=== PATIENT | female | born 1955 | race Caucasian/White ===

== ENCOUNTER 2018-01-14 13:33 | Emergency (ER) | payer OTHER ==
[~2018-01-14 13:33] MED LIST: ZOFRAN4 M2 PO
--- NOTE | 2018-01-14 16:19 | ED GENERAL ADULT ---
History of Present Illness General Chief Complaint: Eye Problems Stated Complaint: ?CELLULITIS TO R EYE Vital Signs & Intake/Output Vital Signs & Intake/Output Vital Signs Date Time Temp Pulse Resp B/P B/P Pulse O2 O2 Flow FiO2 Mean Ox Delivery Rate 01/14 1405 98.2 80 18 130/82 99 Room Air Room Air Allergies Coded Allergies: No Known Allergies (01/14/18) Reconcile Medications Ondansetron HCl (Zofran) 4 MG TABLET 1 TAB PO Q6-8P PRN nausea Triage Note: PT TO TRIAGE WITH BLURRY VISION SINCE THIS MORNING, PT HAS STYE TO RIGHT EYE LID, PT SAW A MD THIS MORNING AND STYE WAS DRAINED, BUT VISUAL ACUITY 20/70 IN AFFECTED EYE AND 20/25 IN UNAFFECTED, CURRENTLY 20/100 IN RIGHT AND 20/25 IN LEFT. 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 Surgical History Surgical History: none Psychosocial History What is your primary language Cuban Tobacco Use: Never used ETOH Use: denies use Illicit Drug Use: denies illicit drug use Progress Plan of Care: Orders Procedure Date/time Status CBC WITHOUT DIFFERENTIAL 01/14 1641 Complete BASIC METABOLIC PANEL 01/[address] ORBITS W IV CONTRAST 01/14 164 Active Laboratory Tests 01/14/18 1648: Anion Gap 10, Estimated GFR > 60, BUN/Creatinine Ratio 21.4, Glucose 138 H, Calcium 9.9, CBC w Diff NO MAN DIFF REQ, RBC 4.35, MCV 83.2, MCH 26.7 L, MCHC 32.1 L, RDW 20.1 H, MPV 7.4, Gran % 52.8, Lymphocytes % 33.9, Monocytes % 9.8 H, Eosinophils % 2.5, Basophils % 1.0, Absolute Granulocytes 3.6, Absolute Lymphocytes 2.3, Absolute Monocytes 0.7 H, Absolute Eosinophils 0.2, Absolute Basophils 0.1 Departure Departure Condition: Stable Referrals: Stephanie Tobin MD (PCP/Family) Departure Forms: Customer Survey General Discharge Information
[2018-01-14 17:09] LABS: ABSOLUTE BASOPHIL COUNT 0.1 /CUMM (0.0-0.2); ABSOLUTE EOSINOPHIL COUNT 0.2 /CUMM (0.0-0.7); ABSOLUTE GRANULOCYTE CT 3.6 /CUMM (1.4-6.5); ABSOLUTE LYMPH COUNT 2.3 /CUMM (1.2-3.4); ABSOLUTE MONOCYTE COUNT 0.7 /CUMM (0.10-0.60); EOSINOPHIL % 2.5 % (0-5); GRANULOCYTE % 52.8 % (42.2-75.2); HEMATOCRIT 36.2 % (37-47); MEAN CORPUSCULAR HGB 26.7 PG (27.0-31.0); MEAN CORPUSCULAR HGB CONC 32.1 G/DL (33.0-37.0); MEAN CORPUSCULAR VOLUME 83.2 FL (81.0-99.0); MEAN PLATELET VOLUME 7.4 FL (7.4-10.4); PLATELET COUNT 338 /CUMM (130-400); RBC DISTRIBUTION WIDTH 20.1 % (11.5-14.5); RED BLOOD CELL CT 4.35 /CUMM (4.20-5.40); WHITE BLOOD CELL COUNT 6.7 /CUMM (4.8-10.8)
--- NOTE | 2018-01-14 18:28 | CT SCAN REPORT ---
CT ORBIT WITH IV CONTRAST CLINICAL INFORMATION: Stye with pain radiating to the eye with eye movement. COMPARISON: None available. TECHNIQUE: A multidetector CT acquisition of the orbits is obtained following the administration of 95 mL of Optiray 320 intravenous contrast without complication. FINDINGS: Right-sided periorbital preseptal soft tissue swelling concentrated within the right upper palpebrae suggesting preseptal cellulitis. There is no evidence of post septal extension. There are no focal drainable fluid collections. Extraocular muscles are normal in size. There are no intraorbital mass lesions. The lacrimal glands are normal. Preserved fat within the superior and inferior orbital fissures and the pterygopalatine fossa bilaterally. No additional significant soft tissue findings. The partially imaged intracranial compartment is unremarkable. There are retention cysts versus polyps along the floor the right and left maxillary sinus. Mild mucosal thickening within the right sphenoid sinus. The remaining paranasal sinuses and the mastoid air cells are clear. The TMJs are unremarkable. There is rightward deviation of the nasal septum with a small rightward directed septal spur. IMPRESSION: Imaging findings suggest right-sided preseptal cellulitis concentrated within the right upper palpebrae. There is no evidence of post septal extension. No drainable fluid collections are identified.
[2018-01-14 18:31] VITALS: BP 116/76
[2018-01-14] MEDS ORDERED: CLEOCIN HCL300 M1 PO (18:46)
--- NOTE | 2018-01-14 18:52 | ED EYE COMPLAINT ---
History of Present Illness General Chief Complaint: Eye Problems Stated Complaint: ?CELLULITIS TO R EYE Source: patient Exam Limitations: no limitations Vital Signs & Intake/Output Vital Signs & Intake/Output Vital Signs Date Time Temp Pulse Resp B/P B/P Pulse O2 O2 Flow FiO2 Mean Ox Delivery Rate 01/14 1831 98.3 74 20 116/76 100 Room Air 01/14 1405 98.2 80 18 130/82 99 Room Air Room Air Allergies Coded Allergies: No Known Allergies (01/14/18) Reconcile Medications Clindamycin HCl (Cleocin HCl) 300 MG CAPSULE 1 CAP PO TID cellulitis Ondansetron HCl (Zofran) 4 MG TABLET 1 TAB PO Q6-8P PRN nausea Triage Note: PT TO TRIAGE WITH BLURRY VISION SINCE THIS MORNING, PT HAS STYE TO RIGHT EYE LID, PT SAW A MD THIS MORNING AND STYE WAS DRAINED, BUT VISUAL ACUITY 20/70 IN AFFECTED EYE AND 20/25 IN UNAFFECTED, CURRENTLY 20/100 IN RIGHT AND 20/25 IN LEFT. PT STATES EYE WAS ACHY YESTERDAY, DENIES FEVERS, NO CELLULUTIS NOTE, ONLY A FOCAL INFECTION TO EYE LID Triage Nurses Notes Reviewed? yes HPI: Patient is a 62-year-old otherwise healthy female who presents today with right- sided eye infection. She noted a dull pain about the right eye 48 hours ago and this morning awoke with erythema overlying the right upper lid. By lunch time, this had developed into a visible stye with a head. She does wear contact lenses only in the left eye, with reportedly normal vision in the right eye. She is usually 20/50 in the right eye but today was 20/70. She reports having developed some discomfort on extraocular range of motion as well. No fever or other constitutional symptoms. Past History Travel History Traveled to [place] past 21 day No Medical History Any Pertinent Medical History? 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 Yes Review of Systems Review of Systems Constitutional: Reports: no symptoms. Eyes: Reports: see HPI, blurred vision, inflammation, pain. Ear: Reports: no symptoms. Nose: Reports: no symptoms. Mouth: Reports: no symptoms. Throat: Reports: no symptoms. Respiratory: Reports: no symptoms. Cardiovascular: Reports: no symptoms. GI: Reports: no symptoms. Genitourinary: Reports: no symptoms. Musculoskeletal: Reports: no symptoms. Skin: Reports: no symptoms. Neurological/Psychological: Reports: no symptoms. Hematologic/Endocrine: Reports: no symptoms. Immunologic/Allergic: Reports: no symptoms. All Other Systems: Reviewed and Negative Physical Exam General Appearance: well developed/nourished, no apparent distress, alert, awake General Inspection: normal inspection General Inspection: PERIORBITAL ERYTHEMA Physical Exam Comments: HEENT: Focused examination of the right eye reveals a stye at the leading edge of the upper eyelid with a head, not actively draining area no conjunctivitis, proptosis, or other significant abnormalities. Subjective pain on extremes of extraocular days The sclera are noninjected, and there is no obvious discharge. Neck: No signs of trauma or asymmetry to the neck. Respiratory: The patient exhibits no signs of labored breathing. Cardiac: Non-tachycardic. GI: No gross abdominal distention. : Deferred Neuro: The patient is oriented to person, place, time, and situation, with no obvious focal motor deficits. Cranial nerves II through XII are intact, and gait is normal. Behavioral: Calm and cooperative Dermatologic: Dermatologic examination reveals no obvious rashes or exanthems. Progress Differential Diagnosis: pRESEPTAL CELLULITIS VERSUS ORBITAL CELLULITIS Plan of Care: Orders Procedure Date/time Status CBC WITHOUT DIFFERENTIAL 01/14 1641 Complete BASIC METABOLIC PANEL 01/14 1641 Complete Laboratory Tests 01/14/18 1648: Anion Gap 10, Estimated GFR > 60, BUN/Creatinine Ratio 21.4, Glucose 138 H, Calcium 9.9, CBC w Diff NO MAN DIFF REQ, RBC 4.35, MCV 83.2, MCH 26.7 L, MCHC 32.1 L, RDW 20.1 H, MPV 7.4, Gran % 52.8, Lymphocytes % 33.9, Monocytes % 9.8 H, Eosinophils % 2.5, Basophils % 1.0, Absolute Granulocytes 3.6, Absolute Lymphocytes 2.3, Absolute Monocytes 0.7 H, Absolute Eosinophils 0.2, Absolute Basophils 0.1 Comments: Patient presented with concern for orbital cellulitis, with obvious preseptal cellulitis. I obtained labs and a CT scan which thankfully documented no injury of orbital or retro-orbital involvement. Therefore, I placed the patient on clindamycin 300 mg 3 times daily, and discharged her with instructions to follow -up at her ophthalmology office. Departure Departure Time of Disposition: 1850 Disposition: HOME OR SELF CARE Condition: Stable Clinical Impression Primary Impression: Preseptal cellulitis of right eye Referrals: Crista SELLERS,Stephanie (PCP/Family) Additional Instructions: Your CT scan showed that the infection is localized to the front of the eye, thankfully not in or behind it. 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 Departure Forms: Customer Survey General Discharge Information Prescriptions: Current Visit Scripts Clindamycin HCl (Cleocin HCl) 1 CAP PO TID #42 CAP
== END 2018-01-14 18:58 ==
LOC: ERH 13:33
PROVIDERS: Physician Assistant
DX: H00.033 Abscess of eyelid right eye, unspecified eyelid (principal)
CPT/HCPCS: 96374; J1885

== ENCOUNTER 2018-02-19 11:14 | Inpatient (IN) | payer OTHER ==
[~2018-02-19] VITALS: Ht 162.6 cm; Wt 58.1 kg
[~2018-02-19 11:14] MED LIST changes: +CLEOCIN HCL300 M1 PO
[2018-02-19] MEDS ORDERED: ALPRAZOLAM0.5 M4 PO (11:21)
[2018-02-19] MEDS ORDERED: BENICAR HCT 401 EACH PO (11:21)
[2018-02-19] MEDS ORDERED: ALIGN4 M1 PO (11:22)
[2018-02-19] MEDS ORDERED: ZOLPIDEM TART12.5 M1 PO (11:22)
--- NOTE | 2018-02-19 11:58 | ED GI/GU/ABDOMINAL COMPLAINT ---
History of Present Illness General Chief Complaint: Nausea, Vomiting, Diarrhea Stated Complaint: DIARRHEA X 1 WEEK Source: patient Exam Limitations: no limitations Allergies Coded Allergies: No Known Allergies (01/14/18) Reconcile Medications Alprazolam 0.5 MG TABLET 1 TAB PO DAILY NEEDED ANXIETY (Reported) Bifidobacterium Infantis (Align) 4 MG (1 BILLION CELL) CAPSULE 1 TAB PO DAILY PROBIOTIC (Reported) Olmesartan/Hydrochlorothiazide (Benicar Hct 40-12.5 MG Tablet) 40 MG-12.5 MG TABLET 1 TAB PO DAILY HTN (Reported) Zolpidem Tartrate (Zolpidem Tartrate ER) 12.5 MG TAB.MPHASE 1 TAB PO QPMP PRN SLEEP (Reported) Triage Note: PER PT HX OF MICROSCOPIC COLITIS LAST BOUT 7-8 MONTHS AGO, REPORTS EXPLOSIVE DIARRHEA X 1 WEEK UNABLE TO EAT HAS NOT CONTACTED GI . FEELING DEHYDRATED Triage Nurses Notes Reviewed? yes ? N Is pt currently ? No Onset: Abrupt Duration: week(s): (1), intermittent Timing: recent history Quality/Severity: moderate, severe HPI: 62-year-old female comes into the emergency room with complaints of intermittent loose stools is been going on for the past week. She reports that since she eats or drinks anything it goes directly through her in comes out like water. She has some cramping abdominal pain with bowel movements but denies any abdominal pain otherwise. Denies any fever or vomiting. Some associated nausea at times and has had a significant decrease in appetite. She tried some Imodium which helped for about a day and then her symptoms returned. History of C. difficile colitis. Denies any recent antibiotic use or recent hospitalizations. (Philip Piper) Vital Signs & Intake/Output Vital Signs & Intake/Output Vital Signs Date Time Temp Pulse Resp B/P B/P Pulse O2 O2 Flow FiO2 Mean Ox Delivery Rate 02/19 1404 97.7 107 16 112/59 98 Room Air 02/19 1120 99.0 83 20 99/60 97 Room Air (Jeimy SELLERS,Elian Serrano) Past History Travel History Traveled to [place] past 21 day No Medical History Any Pertinent Medical History? 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 No (Philip Piper) Review of Systems Review of Systems Constitutional: Reports: see HPI. EENTM: Reports: no symptoms. Respiratory: Reports: no symptoms. Cardiovascular: Reports: no symptoms. GI: Reports: see HPI. Genitourinary: Reports: no symptoms. Musculoskeletal: Reports: no symptoms. Skin: Reports: no symptoms. Neurological/Psychological: Reports: no symptoms. Hematologic/Endocrine: Reports: no symptoms. Immunologic/Allergic: Reports: no symptoms. All Other Systems: Reviewed and Negative (Philip Piper) Physical Exam Physical Exam General Appearance: well developed/nourished, alert, awake, mild distress Head: atraumatic Eyes: Bilateral: normal appearance. Ears, Nose, Throat, Mouth: hearing grossly normal Neck: normal inspection Respiratory: no respiratory distress Cardiovascular: regular rate/rhythm Gastrointestinal: normal bowel sounds, soft, non-tender Back: normal inspection Extremities: normal range of motion Neurologic/Psych: awake, alert, oriented x 3 Skin: intact, normal color Core Measures ACS in differential dx? No Sepsis Present: Yes Sepsis Focused Exam Completed? Yes (Philip Piper) ED Sepsis Exam Date of Focused Sepsis Exam: 02/19/18 Time of Focused Sepsis Exam: 1300 Sepsis Cardiac Exam: Tachycardia Sepsis Resp Exam: CTA Sepsis Cap Refill Exam: <2 Sec Sepsis Peripheral Pulse Exam: Normal Sepsis Peripheral Pulse Location: Radial Sepsis Skin Color Exam: Normal for Ethnicity Skin Temp/Moisture Exam: Warm/Dry (Philip Piper) Progress Differential Diagnosis: appendicitis, biliary colic, cholecystitis, diverticulitis, gastritis, hepatitis, ischemic bowel, pancreatitis, PUD/GERD, UTI/pyelo Diagnostic Imaging: Viewed by Me: CT Scan. Discussed w/RAD: CT Scan. Radiology Impression: PATIENT: VENKATA BEARDEN PRESENT AGE: 62 PATIENT ACCOUNT NO: [id number] : 53 LOCATION: [facility] ORDERING PHYSICIAN: Philip GOMEZ SERVICE DATE: 02/19/18-2908 EXAM TYPE: CAT - CT ABD & PELVIS W IV CONTRAST EXAMINATION: CT ABDOMEN AND PELVIS WITH CONTRAST CLINICAL INFORMATION: Abdominal pain. Diarrhea. COMPARISON: None TECHNIQUE: Multidetector volumetric imaging was performed of the abdomen and pelvis following IV administration of 195 mL of Optiray 320 intravenous contrast. Sagittal and coronal reformatted images were obtained on the technologist's workstation. DLP: 256 mGy-cm FINDINGS: LUNG BASES: Linear bands of platelike atelectasis are present in the lower lobes bilaterally. 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 LIVER, GALLBLADDER, AND BILIARY TREE: Small foci of hypoattenuation around the falciform ligament within hepatic segments 4 and 3 are likely due to aberrant venous inflow. There is a 0.4 standard focus of hypoattenuation in hepatic segment 8 laterally which is too small to characterize and of doubtful clinical significance. Liver is otherwise normal in size and contour with normal attenuation. No ductal dilatation. The gallbladder is unremarkable with no evidence of radiopaque gallstones, gallbladder wall thickening, or obvious pericholecystic inflammatory changes. PANCREAS: Unremarkable. SPLEEN: Unremarkable. ADRENAL GLANDS: Unremarkable. KIDNEYS AND URETERS: There is a small 0.6 cm focus of hypoattenuation in the cortex of the upper pole the left kidney, too small to characterize. A similar small 4 mm focus of high attenuation is present in the lower pole. No suspicious renal lesions are identified. Kidneys are normal in size with symmetric enhancement and cortical thickness. No hydronephrosis, nephrolithiasis, hydroureter, or ureterolithiasis. BLADDER: Unremarkable. GASTROINTESTINAL TRACT: Stomach, small bowel, and colon are normal in caliber. There is mild diffuse mucosal enhancement within the colon with mild associated bowel wall thickening, suggesting of a mild colitis. There is moderate colonic diverticulosis in the descending and sigmoid colon without diverticulitis. No intraperitoneal free fluid or free air. A small 1.5 cm diverticulum is present at the second portion of the duodenum. Small bowel is normal in caliber. Stomach is unremarkable. ABDOMINAL WALL: No significant hernia is appreciated. LYMPH NODES: Numerous mesenteric lymph nodes measuring up to 0.9 cm in short axis, potentially reactive in nature given the generalized bowel wall thickening and mucosal hyperenhancement in the colon. No significant retroperitoneal adenopathy. A left external iliac node measures 0.8 cm in short axis. VASCULAR: Mild calcific atherosclerosis is present in the abdominal aorta. No aneurysmal dilatation. PELVIC VISCERA: Uterus appears surgically absent ovaries are not seen. At the posterior margin of the uterine cuff, there is a 3 x 2 x 1.4 cm focus of homogeneously dense material (160 Hounsfield units) which is of uncertain etiology, potentially related to prior surgery. OSSEOUS STRUCTURES: Multilevel degenerative disc disease present in the lumbar spine with retrolisthesis of L2 on L3 and anterolisthesis of L4 on L5 and L5 on S1. Marked synovitis present in the lower lumbar spine. No fractures. IMPRESSION: 1. Mild diffuse colonic wall thickening and mucosal hyperenhancement with mild mesenteric adenopathy. Findings suggest a pancolitis, most likely infectious or inflammatory ( inflammatory bowel disease) in nature. 2. Colonic diverticulosis and a small duodenal diverticulum. No evidence of diverticulitis. 3. A homogeneously dense 3 cm structure at the posterior margin of the vaginal cuff is of uncertain etiology and may be related to prior surgery 4. A few small subcentimeter foci of hypoattenuation in the liver and kidneys which are to small to characterize, statistically favored to represent small cysts DICTATED BY: Amanuel Desir MD DATE/TIME DICTATED:02/19/181454 CAUSTIC STRENGTH INSPECTOR:JONATHON DATE/TIME TRANSCRIBED:02/19/181454 CONFIDENTIAL, DO NOT COPY WITHOUT APPROPRIATE AUTHORIZATION. <Electronically signed in Other Vendor System> SIGNED BY: Amanuel Desir MD 02/19/18 1518 Initial ED EKG: none (Philip Piper) Plan of Care: Orders Procedure Date/time Status Heart Healthy Diet 02/20 B Active Patient Data 02/19 1629 Active Misc Message 02/19 1607 Active ED Holding Orders 02/19 1607 Active Vital Signs 02/19 1607 Active Code Status 02/19 1607 Active Admit to inpatient 02/19 1605 Active LACTIC ACID 02/19 1458 Complete Add-on Test (ER Only) 02/19 1312 Active BLOOD CULTURE 02/19 1308 Active MAGNESIUM 02/19 1216 Complete CULTURE,STOOL 02/19 1158 Active OVA AND PARASITE ANTIGENS 02/19 1158 Active C.DIFFICILE 02/19 1158 Active LIPASE 02/19 1158 Complete LACTIC ACID 02/19 1158 Complete COMPREHENSIVE METABOLIC PANEL 02/19 1158 Complete CBC WITHOUT DIFFERENTIAL 02/19 1158 Complete Current Medications Sig/Kymberly Start time Last Medication Dose Stop Time Status Admin Sodium Chloride 1,000 ML ONCE ONE 02/19 1630 AC (Normal Saline 0.9%) 02/19 2309 Laboratory Tests 02/19/18 1530: Lactic Acid 1.2 02/19/18 1216: Anion Gap 14, Estimated GFR 45 L, BUN/Creatinine Ratio 18.3, Glucose 131 H, Lactic Acid 3.8 H, Calcium 8.9, Magnesium 1.6, Total Bilirubin 0.1 L, AST 33, ALT 27, Alkaline Phosphatase 109, Total Protein 5.6 L, Albumin 2.9 L, Globulin 2.7, Albumin/Globulin Ratio 1.1, Lipase 107 02/19/18 1158: CBC w Diff MAN DIFF ORDERED, RBC 3.90 L, MCV 84.3, MCH 28.1, MCHC 33.3, RDW 14.8 H, MPV 6.9 L, Gran % 86.7 H, Lymphocytes % 3.7 L, Monocytes % 9.3, Eosinophils % 0.3, Basophils % 0, Absolute Granulocytes 25.6 H, Segmented Neutrophils 59, Band Neutrophils 26 H, Absolute Lymphocytes 1.1 L, Lymphocytes 9 L, Monocytes 6, Absolute Monocytes 2.8 H, Absolute Eosinophils 0.1, Absolute Basophils 0, Platelet Estimate VERIFIED BY SMEAR, Normocytic RBCs VERIFIED, Normochromic RBCs VERIFIED Microbiology 02/19 1527 BLOOD: Blood Culture - RECD 02/19 1409 BLOOD: Blood Culture - RECD 02/19 1158 STOOL: Cryptosporidium Antigen - ORD 02/19 1158 STOOL: Giardia Antigen (BONITA) - ORD 02/19 1158 STOOL: Clostridium difficile Toxin A & B - ORD 02/19 1158 STOOL: Stool Culture - ORD (Jeimy SELLERS,Elian Serrano) Departure Departure Disposition: STILL A PATIENT Condition: Stable Clinical Impression Primary Impression: C. difficile colitis Secondary Impressions: Sepsis Referrals: Stephanie Tobin MD (PCP/Family) Departure Forms: Customer Survey General Discharge Information Admission Note Spoke With: Candida Martinez MD Documentation of Exam: Documentation of any treatments & extenuating circumstances including Concerns Regarding Discharge (functional status, medication knowledge or non-compliance, living conditions, etc.) that warrant an admission rather than observation: Patient will require IV antibiotics. Repeat labs. IV fluids. Infectious disease consultation. GI consultation. Isolation precautions. Patient had recent antibiotics of clindamycin within the last 6 weeks. (Nic GOMEZ,Philip) PA/COIN MACHINE MECHANIC Co-Sign Statement Statement: ED Attending supervision documentation- [X] I saw and evaluated the patient. I have also reviewed all the pertinent lab results and diagnostic results. I agree with the findings and the plan of care as documented in the PA's/COIN MACHINE MECHANIC's documentation. Patient presents for evaluation of severe diarrhea for one week. Physical examination reveals mild abdominal distention and hyperactive bowel sounds. [] I have reviewed the ED Record and agree with the PA's/COIN MACHINE MECHANIC's documentation. [] Additions or exceptions (if any) to the PAs/COIN MACHINE MECHANIC's note and plan are summarized below: [] (Jeimy SELLERS,Elian Serrano)
[2018-02-19 12:31] LABS: ABSOLUTE BASOPHIL COUNT 0 /CUMM (0.0-0.2); ABSOLUTE EOSINOPHIL COUNT 0.1 /CUMM (0.0-0.7); ABSOLUTE GRANULOCYTE CT 25.6 /CUMM (1.4-6.5); ABSOLUTE LYMPH COUNT 1.1 /CUMM (1.2-3.4); ABSOLUTE MONOCYTE COUNT 2.8 /CUMM (0.10-0.60); BASOPHIL % 0 % (0.0-2.0); EOSINOPHIL % 0.3 % (0-5); HEMATOCRIT 32.9 % (37-47); MEAN CORPUSCULAR HGB 28.1 PG (27.0-31.0); MEAN CORPUSCULAR HGB CONC 33.3 G/DL (33.0-37.0); MEAN CORPUSCULAR VOLUME 84.3 FL (81.0-99.0); MEAN PLATELET VOLUME 6.9 FL (7.4-10.4); PLATELET COUNT 434 /CUMM (130-400); RBC DISTRIBUTION WIDTH 14.8 % (11.5-14.5); WHITE BLOOD CELL COUNT 29.5 /CUMM (4.8-10.8)
[2018-02-19 12:38] LABS: GRANULOCYTE % 86.7 % (42.2-75.2)
--- NOTE | 2018-02-19 15:18 | CT SCAN REPORT ---
EXAMINATION: CT ABDOMEN AND PELVIS WITH CONTRAST CLINICAL INFORMATION: Abdominal pain. Diarrhea. COMPARISON: None TECHNIQUE: Multidetector volumetric imaging was performed of the abdomen and pelvis following IV administration of 195 mL of Optiray 320 intravenous contrast. Sagittal and coronal reformatted images were obtained on the technologist's workstation. DLP: 256 mGy-cm FINDINGS: LUNG BASES: Linear bands of platelike atelectasis are present in the lower lobes bilaterally. 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 LIVER, GALLBLADDER, AND BILIARY TREE: Small foci of hypoattenuation around the falciform ligament within hepatic segments 4 and 3 are likely due to aberrant venous inflow. There is a 0.4 standard focus of hypoattenuation in hepatic segment 8 laterally which is too small to characterize and of doubtful clinical significance. Liver is otherwise normal in size and contour with normal attenuation. No ductal dilatation. The gallbladder is unremarkable with no evidence of radiopaque gallstones, gallbladder wall thickening, or obvious pericholecystic inflammatory changes. PANCREAS: Unremarkable. SPLEEN: Unremarkable. ADRENAL GLANDS: Unremarkable. KIDNEYS AND URETERS: There is a small 0.6 cm focus of hypoattenuation in the cortex of the upper pole the left kidney, too small to characterize. A similar small 4 mm focus of high attenuation is present in the lower pole. No suspicious renal lesions are identified. Kidneys are normal in size with symmetric enhancement and cortical thickness. No hydronephrosis, nephrolithiasis, hydroureter, or ureterolithiasis. BLADDER: Unremarkable. GASTROINTESTINAL TRACT: Stomach, small bowel, and colon are normal in caliber. There is mild diffuse mucosal enhancement within the colon with mild associated bowel wall thickening, suggesting of a mild colitis. There is moderate colonic diverticulosis in the descending and sigmoid colon without diverticulitis. No intraperitoneal free fluid or free air. A small 1.5 cm diverticulum is present at the second portion of the duodenum. Small bowel is normal in caliber. Stomach is unremarkable. ABDOMINAL WALL: No significant hernia is appreciated. LYMPH NODES: Numerous mesenteric lymph nodes measuring up to 0.9 cm in short axis, potentially reactive in nature given the generalized bowel wall thickening and mucosal hyperenhancement in the colon. No significant retroperitoneal adenopathy. A left external iliac node measures 0.8 cm in short axis. VASCULAR: Mild calcific atherosclerosis is present in the abdominal aorta. No aneurysmal dilatation. PELVIC VISCERA: Uterus appears surgically absent ovaries are not seen. At the posterior margin of the uterine cuff, there is a 3 x 2 x 1.4 cm focus of homogeneously dense material (160 Hounsfield units) which is of uncertain etiology, potentially related to prior surgery. OSSEOUS STRUCTURES: Multilevel degenerative disc disease present in the lumbar spine with retrolisthesis of L2 on L3 and anterolisthesis of L4 on L5 and L5 on S1. Marked synovitis present in the lower lumbar spine. No fractures. IMPRESSION: 1. Mild diffuse colonic wall thickening and mucosal hyperenhancement with mild mesenteric adenopathy. Findings suggest a pancolitis, most likely infectious or inflammatory (inflammatory bowel disease) in nature. 2. Colonic diverticulosis and a small duodenal diverticulum. No evidence of diverticulitis. 3. A homogeneously dense 3 cm structure at the posterior margin of the vaginal cuff is of uncertain etiology and may be related to prior surgery 4. A few small subcentimeter foci of hypoattenuation in the liver and kidneys which are to small to characterize, statistically favored to represent small cysts
--- NOTE | 2018-02-19 16:53 | History & Physical ---
Emmanuel Robison MD 02/19/18 9966: General Information and HPI MD Statement: I have seen and personally examined VENKATA BEARDEN and documented this H&P. The patient is a 62 year old F who presented with a patient stated chief complaint of diarrhea. Source of Information: patient, old records Exam Limitations: no limitations History of Present Illness: 62 year old female with past medical history significant for uterine cancer s/p hysterectomy, appendectomy, remote history of C. 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 The patient developed non bloody watery diarrhea that has been worsening over the past week. She has associated lower abdominal crampy pain preceding the BMs and relieved by defecation. She hasn't had any fevers but does state she had chills and has been taking Excedrin for headache. She reports poor appetite, anorexia, and fatigue. She has had to call out of work and was exhausted and bed bound over the weekend except for trips to the bathroom. She estimates 7-10 watery loose brown BMs on the days preceding admission. She reports taking several tablets over imodium over the weekend for symptomatic relief of her diarrrhea and she stopped taking her antihypertensive for the last few days because of poor PO intake, diarrhea, and dehydration, but she did take it this morning. She does report feeling presyncopal this morning prior to arriving in the ED. She had a C. 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 She also reportedly had a diagnosis of microscopic colitis on routine screening colonoscopy with a polyp biopsy. She denies any exposure to raw or uncooked foods or recent travel. 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 She also took two weeks of clindamycin for preseptal cellulitis/stye. She denies any significant abdominal pain, nausea, vomiting, dysuria, chest pain or dyspnea. She does report some palpitations, she associated with dehydration and dry mouth. In the ED, she had leukocytosis with bandemia, tachycardia, lactic acidemia, and an abdominal CT demonstrative of pancolitis. She treated with crystalloid, oral vancomycin, and intravenous metronidazole and admitted for severe sepsis and probable C. diff colitis. Allergies/Medications Allergies: Coded Allergies: No Known Allergies (01/14/18) Compliance With Home Meds: GOOD Past History Travel History Traveled to [place] past 21 day No Medical History Neurological: NONE EENT: NONE Cardiovascular: hypertension Respiratory: asthma Gastrointestinal: NONE Hepatic: NONE Renal: NONE Musculoskeletal: NONE Psychiatric: NONE Endocrine: NONE Blood Disorders: NONE Cancer(s): UTERINE CANCER [employer] WORKER/Reproductive: NONE Surgical History Surgical History: none Past Family/Social History Family History Relations & Conditions if any MOTHER FH: esophageal cancer FATHER FH: cerebral aneurysm Psychosocial History Smoking Status: Former Smoker ETOH Use: denies use Illicit Drug Use: denies illicit drug use Functional Ability ADLs Independent: dressing, eating, toileting, bathing. Ambulation: independent IADLs Independent: shopping, housework, finances, food prep, telephone, transportation , medication admin. Employment History Employment Employed Review of Systems Review of Systems Constitutional: Reports: chills, malaise. Denies: fever. EENTM: Reports: no symptoms. Cardiovascular: Reports: palpitations. Denies: chest pain. Respiratory: Denies: cough, short of breath. GI: Reports: abdominal pain, diarrhea. Denies: melena, nausea, bloody stool, vomiting. Genitourinary: Denies: dysuria, frequency. Musculoskeletal: Reports: no symptoms. Skin: Reports: no symptoms. Neurological/Psychological: Reports: no symptoms. Hematologic/Endocrine: Reports: no symptoms. Immunologic/Allergic: Reports: no symptoms. All Other Systems: Reviewed and Negative Exam & Diagnostic Data Last 24 Hrs of Vital Signs/I&O Vital Signs Date Time Temp Pulse Resp B/P B/P Pulse O2 O2 Flow FiO2 Mean Ox Delivery Rate 02/19 1855 99.4 02/19 1404 97.7 107 16 112/59 98 Room Air 02/19 1120 99.0 83 20 99/60 97 Room Air Intake & Output 02/19 1600 02/19 0800 02/19 0000 Intake Total 4000 Output Total Balance 4000 Intake, IV 4000 Patient 58.513 kg Weight Weight Estimated Measurement Method Physical Exam General Appearance Alert, Oriented X3, Cooperative, No Acute Distress Skin No Rashes Skin Temp/Moisture Exam: Warm/Dry Sepsis Skin Exam (color): Normal for Ethnicity Cardiovascular Regular Rate, Normal S1, Normal S2, No Murmurs Lungs Clear to Auscultation, Normal Air Movement Abdomen Normal Bowel Sounds, Soft, No Hepatospenomegaly, No Masses, mild RUQ tenderness on palpation, no rebound or guarding Extremities No Clubbing, No Cyanosis, No Edema, Normal Pulses Sepsis Peripheral Pulse Location: Radial Sepsis Peripheral Pulse Exam: Normal Sepsis Cap Refill Exam: <2 Sec Last 24 Hrs of Labs/Carlos: Laboratory Tests 02/19/18 1530: Lactic Acid 1.2 02/19/18 1216: Anion Gap 14, Estimated GFR 45 L, BUN/Creatinine Ratio 18.3, Glucose 131 H, Lactic Acid 3.8 H, Calcium 8.9, Magnesium 1.6, Total Bilirubin 0.1 L, AST 33, ALT 27, Alkaline Phosphatase 109, Total Protein 5.6 L, Albumin 2.9 L, Globulin 2.7, Albumin/Globulin Ratio 1.1, Lipase 107 02/19/18 1158: CBC w Diff MAN DIFF ORDERED, RBC 3.90 L, MCV 84.3, MCH 28.1, MCHC 33.3, RDW 14.8 H, MPV 6.9 L, Gran % 86.7 H, Lymphocytes % 3.7 L, Monocytes % 9.3, Eosinophils % 0.3, Basophils % 0, Absolute Granulocytes 25.6 H, Segmented Neutrophils 59, Band Neutrophils 26 H, Absolute Lymphocytes 1.1 L, Lymphocytes 9 L, Monocytes 6, Absolute Monocytes 2.8 H, Absolute Eosinophils 0.1, Absolute Basophils 0, Platelet Estimate VERIFIED BY SMEAR, Normocytic RBCs VERIFIED, Normochromic RBCs VERIFIED Microbiology 02/20 1656 STOOL: Cryptosporidium Antigen - COLB 02/20 1656 STOOL: Giardia Antigen (CARLOS) - COLB 02/19 165 STOOL: Clostridium difficile Toxin A & B - RECD 02/19 165 STOOL: Stool Culture - RECD 02/19 1527 BLOOD: Blood Culture - RECD 02/19 1409 BLOOD: Blood Culture - RECD Diagnostic Data Other Results EXAM TYPE: CAT - CT ABD & PELVIS W IV CONTRAST EXAMINATION: CT ABDOMEN AND PELVIS WITH CONTRAST CLINICAL INFORMATION: Abdominal pain. Diarrhea. COMPARISON: None TECHNIQUE: Multidetector volumetric imaging was performed of the abdomen and pelvis following IV administration of 195 mL of Optiray 320 intravenous contrast. Sagittal and coronal reformatted images were obtained on the technologist's workstation. DLP: 256 mGy-cm FINDINGS: LUNG BASES: Linear bands of platelike atelectasis are present in the lower lobes bilaterally. 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 LIVER, GALLBLADDER, AND BILIARY TREE: Small foci of hypoattenuation around the falciform ligament within hepatic segments 4 and 3 are likely due to aberrant venous inflow. There is a 0.4 standard focus of hypoattenuation in hepatic segment 8 laterally which is too small to characterize and of doubtful clinical significance. Liver is otherwise normal in size and contour with normal attenuation. No ductal dilatation. The gallbladder is unremarkable with no evidence of radiopaque gallstones, gallbladder wall thickening, or obvious pericholecystic inflammatory changes. PANCREAS: Unremarkable. SPLEEN: Unremarkable. ADRENAL GLANDS: Unremarkable. KIDNEYS AND URETERS: There is a small 0.6 cm focus of hypoattenuation in the cortex of the upper pole the left kidney, too small to characterize. A similar small 4 mm focus of high attenuation is present in the lower pole. No suspicious renal lesions are identified. Kidneys are normal in size with symmetric enhancement and cortical thickness. No hydronephrosis, nephrolithiasis, hydroureter, or ureterolithiasis. BLADDER: Unremarkable. GASTROINTESTINAL TRACT: Stomach, small bowel, and colon are normal in caliber. There is mild diffuse mucosal enhancement within the colon with mild associated bowel wall thickening, suggesting of a mild colitis. There is moderate colonic diverticulosis in the descending and sigmoid colon without diverticulitis. No intraperitoneal free fluid or free air. A small 1.5 cm diverticulum is present at the second portion of the duodenum. Small bowel is normal in caliber. Stomach is unremarkable. ABDOMINAL WALL: No significant hernia is appreciated. LYMPH NODES: Numerous mesenteric lymph nodes measuring up to 0.9 cm in short axis, potentially reactive in nature given the generalized bowel wall thickening and mucosal hyperenhancement in the colon. No significant retroperitoneal adenopathy. A left external iliac node measures 0.8 cm in short axis. VASCULAR: Mild calcific atherosclerosis is present in the abdominal aorta. No aneurysmal dilatation. PELVIC VISCERA: Uterus appears surgically absent ovaries are not seen. At the posterior margin of the uterine cuff, there is a 3 x 2 x 1.4 cm focus of homogeneously dense material (160 Hounsfield units) which is of uncertain etiology, potentially related to prior surgery. OSSEOUS STRUCTURES: Multilevel degenerative disc disease present in the lumbar spine with retrolisthesis of L2 on L3 and anterolisthesis of L4 on L5 and L5 on S1. Marked synovitis present in the lower lumbar spine. No fractures. IMPRESSION: 1. Mild diffuse colonic wall thickening and mucosal hyperenhancement with mild mesenteric adenopathy. Findings suggest a pancolitis, most likely infectious or inflammatory (inflammatory bowel disease) in nature. 2. Colonic diverticulosis and a small duodenal diverticulum. No evidence of diverticulitis. 3. A homogeneously dense 3 cm structure at the posterior margin of the vaginal cuff is of uncertain etiology and may be related to prior surgery 4. A few small subcentimeter foci of hypoattenuation in the liver and kidneys which are to small to characterize, statistically favored to represent small cysts Assessment/Plan Assessment: 62 year old female with past medical history of C diff 10 years ago, microscopic colitis presents with frequent worsening diarrhea, chills, lethargy, crampy abdominal pain, and anorexia for the past week after recently completing a two week course of clindamycin and CT findings consistent with pancolitis. Severe sepsis secondary to probable severe C. difficile infection: Also could be ischemic, other infectious etiology, microscopic colitis, or IBD Leukocytosis, tachycardia, PEARL, and lactic acidemia no ileus or toxic megacolon WBC 29,500, with 26 bands, lactic acid 3.8, improved to 1.2 with fluid resuscitation Monitor for fever, follow up blood cultures Continue clindamycin 125mg po q6h Infectious disease consultation, appreciate recommendations Received 30cc/kg crystalloid resuscitation and antibiotics in the ED Check stool studies, culture, ova and parasites Check C. diff, special contact precautions Guiaic stool Repeat CBC and labs in the morning PEARL with mildly elevated creatinine: Creatinine 1.2 on presentation Baseline 0.7-0.8 Likely prerenal azotemia from dehydration, fluid losses from diarrhea, and infection Continue intravascular volume resuscitation Hold diuretics/nephrotoxins Check repeat renal function in the AM Hypokalemia: 3.2 on arrival, secondary to prolonged diarrhea Received 10meq potassium IV, add 40meq kdur Repeat basic electrolytes with morning labs HTN: Hold ARB/thiazide combination now in the setting of sepsis and PEARL Last taken the morning of admission, patient reports not taking over the wknd Will plan to restart tomorrow if clinical condition improves and/or blood pressure increases Regular diet DVT ppx-heparin subcutaneous Full code As Ranked By This Provider Problem List: 1. C. difficile colitis 2. Sepsis Core Measures/Misc (05/27) Acute Coronary Syndrome ACS Diagnosis: No Congestive Heart Failure Congestive Heart Failure Diagnosis No Cerebrovascular Accident CVA/TIA Diagnosis: No VTE (View Protocol) VTE Risk Factors Age>40 No Mechanical VTE Prophylaxis d/t N/A MechProphylax Ordered No VTE Pharm Prophylaxis d/t NA PharmProphylax ordered Sepsis (View protocol) Sepsis Present: Yes If YES complete Sepsis Event Note If YES complete Sepsis Event Note Angel Walton MD 02/19/18 1713: General Information and HPI Allergies/Medications Home Med list Alprazolam 0.5 MG TABLET 1 TAB PO DAILY NEEDED ANXIETY (Reported) Cyclobenzaprine HCl 10 MG TABLET 1 TAB PO TID PRN muscle spasm (Reported) Olmesartan/Hydrochlorothiazide (Benicar Hct 40-12.5 MG Tablet) 40 MG-12.5 MG TABLET 0.5 TAB PO DAILY HTN (Reported) Zolpidem Tartrate (Zolpidem Tartrate ER) 12.5 MG TAB.MPHASE 1 TAB PO QPMP PRN SLEEP (Reported) Core Measures/Misc (05/27) Sepsis (View protocol) If YES complete Sepsis Event Note If YES complete Sepsis Event Note Resident Review Statement Other Findings: History of present illness 62 year old woman with past medical history of microscopic colitis, C. difficile colitis, hypertension, asthma, uterine cancer s/p hysterectomy and recent treatment for a stye with 2 weeks clindamycin seen for evaluation of progressively worsening diarrhea. Patient was seen in the [place] ED on 01/14/18 for evaluation of right "eye infection" for which a CT head was obtained that ruled out orbital cellulitis. 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 Patient completed the 2 weeks of antibiotics. She reports that approximately 1 week ago she developed multiple episodes of explosive watery, brown, nonbloody diarrhea with associated subjective fever, chills, and decreased p.o. intake of both food and water. For persistence and worsening of her symptoms she came to the [place] ED for evaluation. Presently she states that she otherwise feels well and has no complaints. 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 She denies any new medications or consumption of raw/undercooked foods. She denies any recent travel. She does admit to recent antibiotic use as commented above. Objective Vital Signs: Temp 97.7-99.0, HR 83-107, RR 16-20, SBP 99-112, O2 97-98% on RA Physical Exam -General: well developed, well nourished middle aged woman in no acute distress -HEENT: NCAT, PERRL, EOMI, anicteric sclera, moist mucous membranes -Neck: Supple, no JVD, trachea midline -Cardio: Normal S1/S2 w/o m/g/r; RRR -Pulm: CTA bilaterally -Abdomen: Soft, mild RLQ tenderness without guarding or rigidity, ND, BS + -Neuro: Awake and alert, CN II-XII grossly intact -Extremities: normal pulses Labs / Imaging / Studies -CBC: WBC/bands 29.5/26, Hgb 10.9, HCT 32.9, platelet 434 -BMP: NA 132, K3.2, CL 95, CO2 23, BUN 22, creatinine 1.2, anion gap 14, glucose 131 -LFT: Within normal limit -Misc: Lactic acid 3.8/1.2, magnesium 1.6, lipase 107 -CT Abdomen/Pelvis with IV contrast: 1. Mild diffuse colonic wall thickening and mucosal hyperenhancement with mild mesenteric adenopathy. Findings suggest a pancolitis, most likely infectious or inflammatory (inflammatory bowel disease) in nature. 2. Colonic diverticulosis and a small duodenal diverticulum. No evidence of diverticulitis. 3. A homogeneously dense 3 cm structure at the posterior margin of the vaginal cuff is of uncertain etiology and may be related to prior surgery 4. A few small subcentimeter foci of hypoattenuation in the liver and kidneys which are to small to characterize, statistically favored to represent small cysts Assessment 62 year old woman with significant past medical history of microscopic colitis and recent treatment for a stye with two weeks clindamycin seen for evaluation of persistent diarrhea. Currently patient feels well and has no complaints after receiving several liters of intravenous fluid. She remains afebrile with vital signs in normal limits. Physical exam is significant only for mild right lower quadrant tenderness without guarding or rigidity. Significant labs include marketed leukocytosis with bandemia and elevated lactic acid with hyponatremia and hypokalemia. CT scan demonstrated pancolitis. Patient received 3 L of intravenous normal saline, oral vancomycin, and intravenous metronidazole in the ED. Clinically patient appears to have severe C. difficile colitis secondary to recent clindamycin use. Stool panel should be sent for culture, C. difficile toxin, cryptococcus, and Giardia analysis. Patient is to be seen by infectious disease senior billing consultant for antibiotic recommendations. Patient is to be continued on oral vancomycin. She is started on a clear liquid diet which is to be advanced as tolerated with maintenance intravenous fluids while patient has poor oral intake. Her ARB/HCTZ is to be held for now due to dehydration which will be restarted as tolerated/needed. Problem List -Pancolitis with leukocytosis / bandemia, likely Severe C. diff colitis -Hyponatremia/hypokalemia/elevated creatinine, likely due to dehydration -Sepsis sepsis, criteria with tachycardia, leukocytosis/bandemia, and elevated lactic acid -Recent Stye s/p 14 days clindamycin -History of C. Diff colitis -Neck injury s/p "screws" and "rods" -History of microscopic colitis, diagnosed via biopsy ~ age 53 -History of uterine cancer s/p hysterectomy -Hypertension -Asthma Plan -Admit to general medicine floor -D5 1/2 NS @ 75mL/hr -Vancomycin 125 mg PO Q6H -Zofran PRN for nausea -Continue home med: Alprazolam, Ambien -Hold ARB / HCTZ for elevated creatinine / dehydration -Consult with ID for antibiotic evaluation -Stool panel: Culture, Giardia, Cryptococcus, C. diff toxin -Pain with acetaminophen -Clear liquid diet, advance as tolerated -DVT PPx subcutaneous heparin -FULL CODE Candida Martinez MD 02/19/18 2323: Core Measures/Misc (05/27) Sepsis (View protocol) If YES complete Sepsis Event Note If YES complete Sepsis Event Note Attending MD Review Statement Attending Statement Attending MD Statement: examined this patient, discuss w/resident/PA/GIRL FRIDAY, agreed w/resident/PA/GIRL FRIDAY, reviewed EMR data (avail) Attending Assessment/Plan: 62F PMH uterine cancer s/p hysterectomy, appendectomy, remote history of C. 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 actate 3.8 initially but normalized after 3L IV fluids, patient dehydrated initially but improved. Seen by ID, started on PO Vanco and Flagyl, stool studies pending. 1. Sepsis secondary to severe C.difficile pancolitis 2. PEARL 3. Lactic acidosis Plan - Admit to general medicine - Continue PO Vanco and IV Flagyl - Follow ID recommendations - Stool studies - IV hydration - Continue home medications - DVT PPx
[2018-02-19] MEDS ORDERED: CYCLOBENZAPRINE10 M1 PO (17:12)
--- NOTE | 2018-02-19 17:29 | Cons- Infect Disease ---
General Information and HPI Consulting Request Date of Consult: 02/19/18 Requested By: Candida Martinez MD Reason for Consult: Rule out C. 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 difficile 10 years prior to admission, treated with a 2 week course of Clindamycin 5 weeks prior to admission for a stye in her right eyelid, admitted today after presenting to the emergency room with a one week history of diarrhea, for which she took 4 Imodium 5 days prior to admission and again one day prior to admission, abdominal cramps and decreased p.o. intake, associated with chills but no fevers, and with increased weakness resulting in a near syncopal episode this morning. On admission she was afebrile. Laboratory data revealed a white blood cell count of 30,000, with 59 segs and 26 bands, BUN/creatinine 22 and 1.2, sodium 132, potassium 3.2, lactic acid 3.8, with normal liver enzymes. CT of the abdomen and pelvis revealed a mild diffuse colonic wall thickening suggesting a pancolitis. Allergies/Medications Allergies: Coded Allergies: No Known Allergies (01/14/18) Home Med List: Alprazolam 0.5 MG TABLET 1 TAB PO DAILY NEEDED ANXIETY (Reported) Bifidobacterium Infantis (Align) 4 MG (1 BILLION CELL) CAPSULE 1 TAB PO DAILY PROBIOTIC (Reported) Olmesartan/Hydrochlorothiazide (Benicar Hct 40-12.5 MG Tablet) 40 MG-12.5 MG TABLET 1 TAB PO DAILY HTN (Reported) Zolpidem Tartrate (Zolpidem Tartrate ER) 12.5 MG TAB.MPHASE 1 TAB PO QPMP PRN SLEEP (Reported) Past History Travel History Traveled to [place] past 21 day No Medical History Neurological: NONE EENT: NONE Cardiovascular: hypertension Respiratory: asthma Gastrointestinal: colitis (microscopic), C Difficile 10 yrs [employer] Hepatic: NONE Renal: NONE Musculoskeletal: NONE Psychiatric: NONE Endocrine: NONE Blood Disorders: NONE 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 She is afebrile. Skin reveals no rash. HEENT exam is negative. Neck is supple with no adenopathy. Lungs are clear. Heart regular rhythm with no murmur. Abdomen is soft, mildly tender on palpation, particularly over the right lower quadrant, with positive bowel sounds. Back no CVA tenderness. Extremities no cyanosis, clubbing or edema. Neuro is without focality. Last 24 Hours of Lab Results: Laboratory Tests 02/19 02/19 02/19 1530 1216 1158 Chemistry Sodium (137 - 145 mmol/L) 132 L Potassium (3.5 - 5.1 mmol/L) 3.2 L Chloride (98 - 107 mmol/L) 95 L Carbon Dioxide (22 - 30 mmol/L) 23 Anion Gap (5 - 16) 14 BUN (7 - 17 mg/dL) 22 H Creatinine (0.5 - 1.0 mg/dL) 1.2 H Estimated GFR (>60 ml/min) 45 L BUN/Creatinine Ratio (7 - 25 %) 18.3 Glucose (65 - 99 mg/dL) 131 H Lactic Acid (0.7 - 2.1 mmol/L) 1.2 3.8 H Calcium (8.4 - 10.2 mg/dL) 8.9 Magnesium (1.6 - 2.3 mg/dL) 1.6 Total Bilirubin (0.2 - 1.3 mg/dL) 0.1 L AST (14 - 36 U/L) 33 ALT (9 - 52 U/L) 27 Alkaline Phosphatase (<127 U/L) 109 Total Protein (6.3 - 8.2 g/dL) 5.6 L Albumin (3.5 - 5.0 g/dL) 2.9 L Globulin (1.9 - 4.2 gm/dL) 2.7 Albumin/Globulin Ratio (1.1 - 2.2 %) 1.1 Lipase (23 - 300 U/L) 107 Hematology CBC w Diff MAN DIFF ORDERED WBC (4.8 - 10.8 /CUMM) 29.5 H RBC (4.20 - 5.40 /CUMM) 3.90 L Hgb (12.0 - 16.0 G/DL) 10.9 L Hct (37 - 47 %) 32.9 L MCV (81.0 - 99.0 FL) 84.3 MCH (27.0 - 31.0 PG) 28.1 MCHC (33.0 - 37.0 G/DL) 33.3 RDW (11.5 - 14.5 %) 14.8 H Plt Count (130 - 400 /CUMM) 434 H MPV (7.4 - 10.4 FL) 6.9 L Gran % (42.2 - 75.2 %) 86.7 H Lymphocytes % (20.5 - 51.1 %) 3.7 L Monocytes % (1.7 - 9.3 %) 9.3 Eosinophils % (0 - 5 %) 0.3 Basophils % (0.0 - 2.0 %) 0 Absolute Granulocytes (1.4 - 6.5 /CUMM) 25.6 H Segmented Neutrophils (42.2 - 75.2 %) 59 Band Neutrophils (0.0 - 5.0 %) 26 H Absolute Lymphocytes (1.2 - 3.4 /CUMM) 1.1 L Lymphocytes (20.5 - 51.1 %) 9 L Monocytes (1.7 - 9.3 %) 6 Absolute Monocytes (0.10 - 0.60 /CUMM) 2.8 H Absolute Eosinophils (0.0 - 0.7 /CUMM) 0.1 Absolute Basophils (0.0 - 0.2 /CUMM) 0 Platelet Estimate (ADEQUATE) VERIFIED BY SMEAR Normocytic RBCs VERIFIED Normochromic RBCs VERIFIED Last 24 Hours of Carlos Results: Blood cultures 2 February 19 pending Diagnostic Data Recent Imaging Findings: CT of the abdomen and pelvis February 19 reveals mild diffuse colonic wall thickening and mucosal hyperenhancement, suggesting a pancolitis Assessment/Plan Assessment/Plan Impression: This is a 62-year-old woman with a history of microscopic colitis, diagnosed 2 years prior to admission, and C. difficile 10 years prior to admission, treated with a 2 week course of Clindamycin 5 weeks prior to admission for a stye in her right eyelid, admitted today with a one week history of diarrhea, for which she took 4 Imodium 5 days prior to admission and again one day prior to admission, abdominal cramps, decreased p.o. intake and increased weakness, resulting in a near syncopal episode, found to be afebrile with a leukocytosis and bandemia and with a CT of the abdomen and pelvis revealing a pancolitis. Her clinical picture is most suggestive of severe C. difficile colitis given her recent antibiotic treatment, particularly with Clindamycin, and leukocytosis. Other possible etiologies include microscopic colitis, given her history of this , infectious colitis, for example secondary to Salmonella or Campylobacter, ischemic colitis, with her history of hypertension, and inflammatory bowel disease. A stool has not yet been sent for C. difficile or culture, but she should be treated empirically for C. difficile pending results. As noted above she has taken several doses of Imodium over the last week, which likely increased the severity of her illness. Suggestion: 1. Send a stool for C. difficile and culture 2. Special contact isolation pending above 3. Ensure adequate rehydration 4. Begin Vancomycin 125 mg p.o. every 6 hours Consult Acknowledgment - Thank you for your consult request.
--- NOTE | 2018-02-19 19:20 | Sepsis Event Note ---
Sepsis Event Note Severe Sepsis Severe Sepsis Present: Yes Severe Sepsis Actions Taken: Blood Cultures x2, Lactic Acid x2, IV Broad Spectrum Abx, IV Fluids- NS or LR Septic Shock Septic Shock Present: No Event Note Event Note: 62 year old woman with significant past medical history of microscopic colitis, c. diff colitis, and recent treated with two weeks of clindamycin seen for persistent diarrhea. Patient meets severe sepsis criteria with leukocytosis with bandemia, tachycardia, and elevated lactic acid. Blood cultures were drawn and patient was covered with vancomycin and metronidazole and aggressively hydrated with 3 L of intravenous normal saline. Sepsis Focused Exam Sepsis Cardiac Exam: Tachycardia Sepsis Resp Exam: CTA Sepsis Cap Refill Exam: <2 Sec Sepsis Peripheral Pulse Exam: Normal Sepsis Peripheral Pulse Location: Dorsalis Pedis Sepsis Skin Exam (color): Normal for Ethnicity Skin Temp/Moisture Exam: Warm/Dry
[2018-02-19 22:18] VITALS: BP 100/57
[2018-02-20 06:54] VITALS: BP 100/60
--- NOTE | 2018-02-20 07:31 | PN- Housestaff ---
Ricki SELLERS,Emmanuel 02/20/18 0730: Subjective Follow-up For: severe sepsis colitis probable C diff Subjective: diarrhea persists, 6-8 episodes overnight feeling improved with hydration ate a little bit of eggs this morning Review of Systems Constitutional: Reports: see HPI. Objective Last 24 Hrs of Vital Signs/I&O Vital Signs Date Time Temp Pulse Resp B/P B/P Pulse O2 O2 Flow FiO2 Mean Ox Delivery Rate 02/20 0654 99.3 105 20 100/60 95 Room Air 02/19 2218 97.4 114 18 100/57 97 02/19 2000 97.8 02/19 1855 99.4 02/19 1404 97.7 107 16 112/59 98 Room Air Intake & Output 02/20 1600 02/20 0800 02/20 0000 Intake Total 1000 700 Output Total 400 Balance 1000 300 Intake, IV 600 300 Intake, Oral 400 400 Number 9 4 Bowel Movements Output, Urine 400 Patient 58.06 kg Weight Weight Reported by Patient Measurement Method Physical Exam General Appearance: Alert, Oriented X3, Cooperative, No Acute Distress Cardiovascular: Regular Rate, Normal S1, Normal S2, No Murmurs Lungs: Clear to Auscultation, Normal Air Movement Abdomen: Normal Bowel Sounds, Soft, No Tenderness, No Masses Extremities: No Clubbing, No Cyanosis, No Edema, Normal Pulses Current Medications: Current Medications Sig/Kymberly Start time Last Medication Dose Route Stop Time Status Admin Acetaminophen 650 MG Q6P PRN 02/19 1730 AC 02/19 PO 1855 Alprazolam 0.5 MG DAILY NEEDED 02/19 1715 AC PO 02/26 1714 Cyclobenzaprine HCl 10 MG TIDPRN PRN 02/19 1715 AC PO Dextrose/Sodium 1,000 ML Q13H 02/19 1745 AC 02/20 Chloride IV 0552 Heparin Sodium 5,000 UNIT Q8 02/19 2200 AC (Porcine) SC Metronidazole 500 MG ONCE ONE 02/19 1430 CAN N/A 1 UNIT IV 02/19 1529 Ondansetron HCl 4 MG Q8P PRN 02/19 1730 AC IV Potassium Chloride 40 MEQ ONCE ONE 02/19 2045 DC 02/19 PO 02/19 2046 2124 Potassium Chloride 10 MEQ ONCE ONE 02/19 1315 DC 02/19 IV 02/19 1316 1415 Sodium Chloride 1,000 ML ONCE ONE 02/19 1630 CAN IV 02/19 2309 Sodium Chloride 1,000 ML BOLUS ONE 02/19 1315 DC 02/19 IV 02/19 1414 1416 Sodium Chloride 1,000 ML BOLUS ONE 02/19 1315 DC 02/19 IV 02/19 1414 1525 Sodium Chloride 1,000 ML BOLUS ONE 02/19 1200 DC 02/19 IV 02/19 1259 1238 Vancomycin HCl 125 MG Q6H 02/19 2300 AC 02/20 PO 1104 Vancomycin HCl 125 MG ONCE ONE 02/19 1645 DC 02/19 PO 02/19 1646 1725 Vancomycin HCl 250 MG ONCE ONE 02/19 1630 CAN PO 02/19 1631 Zolpidem Tartrate 10 MG AT BEDTIME NEED.. 02/19 1715 AC 02/19 PO 2240 Last 24 Hrs of Lab/Carlos Results Last 24 Hrs of Labs/Mics: Laboratory Tests 02/20/18 0703: Anion Gap 9, Estimated GFR > 60, BUN/Creatinine Ratio 13.3, Magnesium 1.7, CBC w Diff NO MAN DIFF REQ, RBC 3.82 L, MCV 85.0, MCH 28.4, MCHC 33.4, RDW 15.9 H, MPV 7.4, Gran % 79.7 H, Lymphocytes % 8.1 L, Monocytes % 10.8 H, Eosinophils % 1.3, Basophils % 0.1, Absolute Granulocytes 13.5 H, Absolute Lymphocytes 1.4, Absolute Monocytes 1.8 H, Absolute Eosinophils 0.2, Absolute Basophils 0 02/19/18 1530: Lactic Acid 1.2 02/19/18 1216: Anion Gap 14, Estimated GFR 45 L, BUN/Creatinine Ratio 18.3, Glucose 131 H, Lactic Acid 3.8 H, Calcium 8.9, Magnesium 1.6, Total Bilirubin 0.1 L, AST 33, ALT 27, Alkaline Phosphatase 109, Total Protein 5.6 L, Albumin 2.9 L, Globulin 2.7, Albumin/Globulin Ratio 1.1, Lipase 107 02/19/18 1158: CBC w Diff MAN DIFF ORDERED, RBC 3.90 L, MCV 84.3, MCH 28.1, MCHC 33.3, RDW 14.8 H, MPV 6.9 L, Gran % 86.7 H, Lymphocytes % 3.7 L, Monocytes % 9.3, Eosinophils % 0.3, Basophils % 0, Absolute Granulocytes 25.6 H, Segmented Neutrophils 59, Band Neutrophils 26 H, Absolute Lymphocytes 1.1 L, Lymphocytes 9 L, Monocytes 6, Absolute Monocytes 2.8 H, Absolute Eosinophils 0.1, Absolute Basophils 0, Platelet Estimate VERIFIED BY SMEAR, Normocytic RBCs VERIFIED, Normochromic RBCs VERIFIED Microbiology 02/19 2050 STOOL: Cryptosporidium Antigen - RECD 02/19 2050 STOOL: Giardia Antigen (CARLOS) - RECD 02/19 165 STOOL: Clostridium difficile Toxin A & B - RES 02/19 165 STOOL: Stool Culture - RES 02/19 1527 BLOOD: Blood Culture - RECD 02/19 1409 BLOOD: Blood Culture - RES Assessment/Plan Assessment: 62 year old female with past medical history of C diff 10 years ago, microscopic colitis presents with frequent worsening diarrhea, chills, lethargy, crampy abdominal pain, and anorexia for the past week after recently completing a two week course of clindamycin and CT findings consistent with pancolitis. Severe sepsis secondary to probable severe C. difficile infection: Also could be ischemic, other infectious etiology, microscopic colitis, or IBD Leukocytosis, tachycardia, PEARL, and lactic acidemia no ileus or toxic megacolon WBC 29,500, with 26 bands, lactic acid 3.8, improved to 1.2 with fluid resuscitation Monitor for fever, follow up blood cultures Continue clindamycin 125mg po q6h Infectious disease consultation, appreciate recommendations Received 30cc/kg crystalloid resuscitation and antibiotics in the ED C. diff pending, special contact precautions [place] [id number] without bandemia this morning PEARL: Resolved with intravascular volume resuscitation Continue IV hydration with persistent diarrhea Repeat labs and electrolytes tomorrow morning, potassium repleted HTN: Hold ARB/thiazide combination now in the setting of sepsis and PEARL Continue to hold, SBP ~100 today Regular diet DVT ppx-heparin subcutaneous and ALPs, ambulation Full code Problem List: 1. Sepsis 2. Colitis Pain Ratin Pain Location: n/a Pain Goal: Pain 4 or less Pain Plan: prn Tomorrow's Labs & Rationales: cbc, bep Adelita SELLERS,Bharati 02/20/18 1149: Attending MD Review Statement Attending Statement Attending MD Statement: examined this patient, discuss w/resident/PA/DENTAL EQUIPMENT TECHNICIAN, agreed w/resident/PA/DENTAL EQUIPMENT TECHNICIAN, reviewed EMR data (avail), discussed with nursing, discussed with case mgmt, amended to note Attending Assessment/Plan: Patient resting comfortably not in acute distress. She reports feeling better compared to presentation. She still having loose stools. She is still having abdominal cramping but reports the improve after having bowel movements. Denies any nausea or vomiting. She is afebrile. Blood pressure is borderline but is acceptable given her stature. Laboratory data today shows improvement of her white cell count and creatinine level. Clostridium difficile toxin results are still pending. Follow-up results. Continue antibiotic therapy with oral vancomycin for now.
[2018-02-20 08:13] LABS: ABSOLUTE BASOPHIL COUNT 0 /CUMM (0.0-0.2); ABSOLUTE EOSINOPHIL COUNT 0.2 /CUMM (0.0-0.7); ABSOLUTE GRANULOCYTE CT 13.5 /CUMM (1.4-6.5); ABSOLUTE LYMPH COUNT 1.4 /CUMM (1.2-3.4); ABSOLUTE MONOCYTE COUNT 1.8 /CUMM (0.10-0.60); BASOPHIL % 0.1 % (0.0-2.0); EOSINOPHIL % 1.3 % (0-5); GRANULOCYTE % 79.7 % (42.2-75.2); HEMATOCRIT 32.5 % (37-47); MEAN CORPUSCULAR HGB 28.4 PG (27.0-31.0); MEAN CORPUSCULAR HGB CONC 33.4 G/DL (33.0-37.0); MEAN PLATELET VOLUME 7.4 FL (7.4-10.4); PLATELET COUNT 406 /CUMM (130-400); RBC DISTRIBUTION WIDTH 15.9 % (11.5-14.5); RED BLOOD CELL CT 3.82 /CUMM (4.20-5.40)
--- NOTE | 2018-02-20 11:24 | PN- Infect Dx ---
Subjective Subjective: Afebrile. She feels improved today with no further abdominal cramps. She had 8 loose stools overnight but only one this morning. Objective Last 24 Hrs of Vital Signs/I&O Vital Signs Date Time Temp Pulse Resp B/P B/P Pulse O2 O2 Flow FiO2 Mean Ox Delivery Rate 02/20 0654 99.3 105 20 100/60 95 Room Air 02/19 2218 97.4 114 18 100/57 97 02/19 2000 97.8 02/19 1855 99.4 02/19 1404 97.7 107 16 112/59 98 Room Air Intake & Output 02/20 1600 02/20 0800 02/20 0000 Intake Total 1000 700 Output Total 400 Balance 1000 300 Intake, IV 600 300 Intake, Oral 400 400 Number 9 4 Bowel Movements Output, Urine 400 Patient 128 lb Weight Weight Reported by Patient Measurement Method Physical Exam Other Physical Findings: She appears comfortable in no acute distress Lungs are clear Heart regular rhythm with no murmur Abdomen soft, nontender with positive bowel sounds Extremities no cyanosis, clubbing or edema Results Last 24 Hours of Lab Results: Laboratory Tests 02/20 02/19 02/19 0703 1530 1216 Chemistry Sodium (137 - 145 mmol/L) 136 L 132 L Potassium (3.5 - 5.1 mmol/L) 3.6 3.2 L Chloride (98 - 107 mmol/L) 103 95 L Carbon Dioxide (22 - 30 mmol/L) 23 23 Anion Gap (5 - 16) 9 14 BUN (7 - 17 mg/dL) 8 22 H Creatinine (0.5 - 1.0 mg/dL) 0.6 1.2 H Estimated GFR (>60 ml/min) > 60 45 L BUN/Creatinine Ratio (7 - 25 %) 13.3 18.3 Glucose (65 - 99 mg/dL) 131 H Lactic Acid (0.7 - 2.1 mmol/L) 1.2 3.8 H Calcium (8.4 - 10.2 mg/dL) 8.9 Magnesium (1.6 - 2.3 mg/dL) 1.7 1.6 Total Bilirubin (0.2 - 1.3 mg/dL) 0.1 L AST (14 - 36 U/L) 33 ALT (9 - 52 U/L) 27 Alkaline Phosphatase (<127 U/L) 109 Total Protein (6.3 - 8.2 g/dL) 5.6 L Albumin (3.5 - 5.0 g/dL) 2.9 L Globulin (1.9 - 4.2 gm/dL) 2.7 Albumin/Globulin Ratio (1.1 - 2.2 %) 1.1 Lipase (23 - 300 U/L) 107 Hematology CBC w Diff NO MAN DIFF REQ WBC (4.8 - 10.8 /CUMM) 17.0 H RBC (4.20 - 5.40 /CUMM) 3.82 L Hgb (12.0 - 16.0 G/DL) 10.9 L Hct (37 - 47 %) 32.5 L MCV (81.0 - 99.0 FL) 85.0 MCH (27.0 - 31.0 PG) 28.4 MCHC (33.0 - 37.0 G/DL) 33.4 RDW (11.5 - 14.5 %) 15.9 H Plt Count (130 - 400 /CUMM) 406 H MPV (7.4 - 10.4 FL) 7.4 Gran % (42.2 - 75.2 %) 79.7 H Lymphocytes % (20.5 - 51.1 %) 8.1 L Monocytes % (1.7 - 9.3 %) 10.8 H Eosinophils % (0 - 5 %) 1.3 Basophils % (0.0 - 2.0 %) 0.1 Absolute Granulocytes (1.4 - 6.5 /CUMM) 13.5 H Absolute Lymphocytes (1.2 - 3.4 /CUMM) 1.4 Absolute Monocytes (0.10 - 0.60 /CUMM) 1.8 H Absolute Eosinophils (0.0 - 0.7 /CUMM) 0.2 Absolute Basophils (0.0 - 0.2 /CUMM) 0 02/19 1158 Hematology CBC w Diff MAN DIFF ORDERED WBC (4.8 - 10.8 /CUMM) 29.5 H RBC (4.20 - 5.40 /CUMM) 3.90 L Hgb (12.0 - 16.0 G/DL) 10.9 L Hct (37 - 47 %) 32.9 L MCV (81.0 - 99.0 FL) 84.3 MCH (27.0 - 31.0 PG) 28.1 MCHC (33.0 - 37.0 G/DL) 33.3 RDW (11.5 - 14.5 %) 14.8 H Plt Count (130 - 400 /CUMM) 434 H MPV (7.4 - 10.4 FL) 6.9 L Gran % (42.2 - 75.2 %) 86.7 H Lymphocytes % (20.5 - 51.1 %) 3.7 L Monocytes % (1.7 - 9.3 %) 9.3 Eosinophils % (0 - 5 %) 0.3 Basophils % (0.0 - 2.0 %) 0 Absolute Granulocytes (1.4 - 6.5 /CUMM) 25.6 H Segmented Neutrophils (42.2 - 75.2 %) 59 Band Neutrophils (0.0 - 5.0 %) 26 H Absolute Lymphocytes (1.2 - 3.4 /CUMM) 1.1 L Lymphocytes (20.5 - 51.1 %) 9 L Monocytes (1.7 - 9.3 %) 6 Absolute Monocytes (0.10 - 0.60 /CUMM) 2.8 H Absolute Eosinophils (0.0 - 0.7 /CUMM) 0.1 Absolute Basophils (0.0 - 0.2 /CUMM) 0 Platelet Estimate (ADEQUATE) VERIFIED BY SMEAR Normocytic RBCs VERIFIED Normochromic RBCs VERIFIED Last 24 Hours of Carlos Results: Blood cultures 2 February 19 negative Stool C. difficile February 19 pending Stool culture February 19 mixed ashley Stool O&P February 19 pending Assessment/Plan ID Impression: Improved, with temperatures remaining normal, white blood cell count decreasing, electrolytes normalized and creatinine decreased, on empiric treatment with p.o. Vancomycin, Day 1 of treatment, for presumed C. difficile colitis in the setting of a recent 2 week course of Clindamycin. Suggestion: 1. Follow-up stool for C. difficile 2. Continue p.o. Vancomycin to plan on a 10 day course of treatment
[2018-02-20 13:53] VITALS: BP 146/80
[2018-02-20 22:03] VITALS: BP 120/80
[2018-02-21 06:30] VITALS: BP 102/70
--- NOTE | 2018-02-21 07:09 | PN- Housestaff ---
See Addendum Subjective Follow-up For: c diff colitis hypokalemia Subjective: patient had worsened diarrhea (12BM) and crampy lower abdominal pain after eating yesterday with mucous, febrile yesterday tmax 100.6, currently afebrile, appetite improved wants to go home today Review of Systems Constitutional: Reports: see HPI. Objective Last 24 Hrs of Vital Signs/I&O Vital Signs Date Time Temp Pulse Resp B/P B/P Pulse O2 O2 Flow FiO2 Mean Ox Delivery Rate 02/21 0630 99.1 102 20 102/70 94 Room Air 02/20 2203 98.3 95 20 120/80 98 Room Air 02/20 1540 99.4 02/20 1442 100.6 02/20 1353 100.6 111 20 146/80 98 Room Air Intake & Output 02/21 1600 02/21 0800 02/21 0000 Intake Total 1160 1160 Output Total Balance 1160 1160 Intake, IV 800 800 Intake, Oral 360 360 Number 3 Bowel Movements Physical Exam General Appearance: Alert, Oriented X3, Cooperative, No Acute Distress Cardiovascular: Regular Rate, Normal S1, Normal S2, No Murmurs Lungs: Clear to Auscultation, Normal Air Movement Abdomen: Normal Bowel Sounds, Soft, No Tenderness, No Masses Extremities: No Clubbing, No Cyanosis, No Edema, Normal Pulses Current Medications: Current Medications Sig/Kymberly Start time Last Medication Dose Route Stop Time Status Admin Acetaminophen 1,000 MG Q6P PRN 02/20 1430 AC 02/20 N/A 1 UNIT IV 1442 Acetaminophen 650 MG Q6P PRN 02/19 1730 AC 02/21 PO 0704 Alprazolam 0.5 MG DAILY NEEDED 02/19 1715 AC PO 02/26 1714 Cyclobenzaprine HCl 10 MG TIDPRN PRN 02/19 1715 AC PO Dextrose/Sodium 1,000 ML Q10H 02/20 1415 DC 02/20 Chloride IV 2318 Dextrose/Sodium 1,000 ML Q13H 02/19 1745 DC 02/20 Chloride IV 0552 Heparin Sodium 5,000 UNIT Q8 02/19 2200 AC (Porcine) SC Ondansetron HCl 4 MG Q8P PRN 02/19 1730 AC IV Potassium Chloride 40 MEQ ONCE ONE 02/21 0845 AC PO 02/21 0846 Vancomycin HCl 125 MG Q6H 02/19 2300 AC 02/21 PO 0525 Zolpidem Tartrate 10 MG AT BEDTIME NEED.. 02/19 1715 AC 02/20 PO 2314 Last 24 Hrs of Lab/Carlos Results Last 24 Hrs of Labs/Mics: Laboratory Tests 02/21/18 0655: Anion Gap 8, Estimated GFR > 60, BUN/Creatinine Ratio 3.3 L, Magnesium 1.6, CBC w Diff NO MAN DIFF REQ, RBC 3.44 L, MCV 84.4, MCH 28.3, MCHC 33.6, RDW 15.7 H, MPV 6.9 L, Gran % 81.2 H, Lymphocytes % 9.2 L, Monocytes % 7.9, Eosinophils % 1.4, Basophils % 0.3, Absolute Granulocytes 10.5 H, Absolute Lymphocytes 1.2, Absolute Monocytes 1.0 H, Absolute Eosinophils 0.2, Absolute Basophils 0 Assessment/Plan Assessment: 62 year old female with past medical history of C diff 10 years ago, microscopic colitis presents with frequent worsening diarrhea, chills, lethargy, crampy abdominal pain, and anorexia for the past week after recently completing a two week course of clindamycin and CT findings consistent with pancolitis. Severe sepsis secondary to severe C. difficile infection: Leukocytosis, tachycardia, PEARL, and lactic acidemia no ileus or toxic megacolon WBC 29,500, with 26 bands, lactic acid 3.8, improved to 1.2 with fluid resuscitation Monitor for fever, follow up blood cultures Continue vancomycin 125mg po q6h total 10 day course Infectious disease consultation, appreciate recommendations Received 30cc/kg crystalloid resuscitation and antibiotics in the ED C. diff toxin positive, special [place] [id number] today Outpatient GI follow up in [place] PEARL: Creatinine 1.2 on presentation, now 0.6 Resolved with intravascular volume resuscitation Continue IV hydration with persistent diarrhea Repeat potassium 3.1 morning, potassium repleted HTN: Holding ARB/thiazide SBP 100-140 today Regular diet DVT ppx-heparin subcutaneous and ALPs, ambulation Full code Problem List: 1. C. difficile colitis 2. Sepsis Pain Ratin Pain Location: n/a Pain Goal: Pain 4 or less Pain Plan: prn Tomorrow's Labs & Rationales: none, discharge
--- NOTE | 2018-02-21 07:15 | Discharge Summary ---
Visit Information Visit Dates Admission Date: 02/19/18 Discharge Date: 02/21/18 Hospital Course Course Attending Physician: Bharati Ureña MD Primary Care Physician: Crista SELLERS,[facility] Course: 62 year old female with past medical history of C diff 10 years ago and microscopic colitis presented with worsening diarrhea ~bowel movements daily, chills, lethargy, crampy abdominal pain, and anorexia over the past week after recently completing a two week course of clindamycin and CT findings of pancolitis. The patient was in severe sepsis on presentation with leukocytosis of 29,500 with 26 bands, lactic acidemia to 3.8, tachycardia and acute kidney injury with mildly elevated creatinine 1.2, baseline 0.6. She immediately was treated with intravenous metronidazole and oral vancomycin in addition to aggressive intravascular volume resuscitation. The patient subsequently developed a fever. Blood cultures were negative and C. diff stool toxin was positive. The patient's acute kidney injury and leukocytosis improved with antibiotic treatment and fluids. Infectious disease was consulted and oral vancomycin was continued for a total ten day course. The patient continued to have diarrhea with hypokalemia requiring daily repletion but felt well with hydration and was able to eat. 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 She was also given a laboratory order slip for a CBC and BEP to check for resolution of leukocytosis and hypokalemia four days after discharge. Allergies: Coded Allergies: No Known Allergies (01/14/18) Significant Procedures: CT ABD & PELVIS W IV CONTRAST 02/19/18 EXAMINATION: CT ABDOMEN AND PELVIS WITH CONTRAST CLINICAL INFORMATION: Abdominal pain. Diarrhea. COMPARISON: None TECHNIQUE: Multidetector volumetric imaging was performed of the abdomen and pelvis following IV administration of 195 mL of Optiray 320 intravenous contrast. Sagittal and coronal reformatted images were obtained on the technologist's workstation. DLP: 256 mGy-cm FINDINGS: LUNG BASES: Linear bands of platelike atelectasis are present in the lower lobes bilaterally. 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 LIVER, GALLBLADDER, AND BILIARY TREE: Small foci of hypoattenuation around the falciform ligament within hepatic segments 4 and 3 are likely due to aberrant venous inflow. There is a 0.4 standard focus of hypoattenuation in hepatic segment 8 laterally which is too small to characterize and of doubtful clinical significance. Liver is otherwise normal in size and contour with normal attenuation. No ductal dilatation. The gallbladder is unremarkable with no evidence of radiopaque gallstones, gallbladder wall thickening, or obvious pericholecystic inflammatory changes. PANCREAS: Unremarkable. SPLEEN: Unremarkable. ADRENAL GLANDS: Unremarkable. KIDNEYS AND URETERS: There is a small 0.6 cm focus of hypoattenuation in the cortex of the upper pole the left kidney, too small to characterize. A similar small 4 mm focus of high attenuation is present in the lower pole. No suspicious renal lesions are identified. Kidneys are normal in size with symmetric enhancement and cortical thickness. No hydronephrosis, nephrolithiasis, hydroureter, or ureterolithiasis. BLADDER: Unremarkable. GASTROINTESTINAL TRACT: Stomach, small bowel, and colon are normal in caliber. There is mild diffuse mucosal enhancement within the colon with mild associated bowel wall thickening, suggesting of a mild colitis. There is moderate colonic diverticulosis in the descending and sigmoid colon without diverticulitis. No intraperitoneal free fluid or free air. A small 1.5 cm diverticulum is present at the second portion of the duodenum. Small bowel is normal in caliber. Stomach is unremarkable. ABDOMINAL WALL: No significant hernia is appreciated. LYMPH NODES: Numerous mesenteric lymph nodes measuring up to 0.9 cm in short axis, potentially reactive in nature given the generalized bowel wall thickening and mucosal hyperenhancement in the colon. No significant retroperitoneal adenopathy. A left external iliac node measures 0.8 cm in short axis. VASCULAR: Mild calcific atherosclerosis is present in the abdominal aorta. No aneurysmal dilatation. PELVIC VISCERA: Uterus appears surgically absent ovaries are not seen. At the posterior margin of the uterine cuff, there is a 3 x 2 x 1.4 cm focus of homogeneously dense material (160 Hounsfield units) which is of uncertain etiology, potentially related to prior surgery. OSSEOUS STRUCTURES: Multilevel degenerative disc disease present in the lumbar spine with retrolisthesis of L2 on L3 and anterolisthesis of L4 on L5 and L5 on S1. Marked synovitis present in the lower lumbar spine. No fractures. IMPRESSION: 1. Mild diffuse colonic wall thickening and mucosal hyperenhancement with mild mesenteric adenopathy. Findings suggest a pancolitis, most likely infectious or inflammatory (inflammatory bowel disease) in nature. 2. Colonic diverticulosis and a small duodenal diverticulum. No evidence of diverticulitis. 3. A homogeneously dense 3 cm structure at the posterior margin of the vaginal cuff is of uncertain etiology and may be related to prior surgery 4. A few small subcentimeter foci of hypoattenuation in the liver and kidneys which are to small to characterize, statistically favored to represent small cysts Disposition Summary Disposition Principal Diagnosis: Severe sepsis secondary to severe C. diff infection with pancolitis Acute diarrhea Hypokalemia Additional Diagnosis: History of C. 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 Check your WBC and electrolytes four days after discharge. Medications at Discharge Discharge Medications: Continue taking these medications: Olmesartan/Hydrochlorothiazide (Benicar Hct 40-12.5 MG Tablet) 40 MG-12.5 MG TABLET 0.5 Tablet ORAL DAILY Days = 0 Comments: NOT TAKEN IN HOSPITAL Alprazolam (Alprazolam) 0.5 MG TABLET 1 Tablet ORAL DAILY NEEDED Qty = 180 Comments: NOT TAKEN IN HOSPITAL Zolpidem Tartrate (Zolpidem Tartrate ER) 12.5 MG TAB.MPHASE 1 Tablet ORAL Every night as needed as needed for SLEEP Qty = 90 Comments: Last Taken: 02/20/18 Time: 2200 Cyclobenzaprine HCl (Cyclobenzaprine HCl) 10 MG TABLET 1 Tablet ORAL THREE TIMES DAILY as needed for muscle spasm Comments: NOT TAKEN IN HOSPITAL Start taking the following new medications: Vancomycin HCl (Vancomycin HCl) 125 MG CAPSULE 1 Tablet ORAL Q6H Qty = 36 No Refills Instructions: . Comments: Last Taken: 02/21/18 Time: 1030 AM Potassium Chloride (K-Tab ER) 10 MEQ TABLET.ER 1 Tablet ORAL DAILY Qty = 30 No Refills Instructions: . Copies To: Crista SELLERS,Stephanie Attending MD Review Statement Documenting Attending: Bharati Ureña MD Other Findings: Medically stable to be discharged home today. Patient is to follow-up with her primary care provider next week.
[2018-02-21] MEDS ORDERED: VANCOMYCIN HCL125 MG PO ×3 (07:19→10:19)
--- NOTE | 2018-02-21 07:21 | Patient Discharge Instructions ---
Discharge Instructions General Discharge Information You were seen/treated for: C. 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 Take your antibiotics as prescribed. Check your CBC and BEP for white count and pottassium levels after discharge, also follow up with your OBGYN regarding your CT scan findings. Acute Coronary Syndrome Inclusion Criteria At DC or during hospital stay patient has or had the following: ACS DIAGNOSIS No Discharge Core Measures Meds if any: Prescribed or Continued at Discharge Meds if any: NOT Prescribed or Continued at Discharge Congestive Heart Failure Inclusion Criteria At DC or during hospital stay patient has or had the following: CHF DIAGNOSIS No Discharge Core Measures Meds if any: Prescribed or Continued at Discharge Meds if any: NOT Prescribed or Continued at Discharge Cerebrovascular accident Inclusion Criteria At DC or during hospital stay patient has or had the following: CVA/TIA Diagnosis No Discharge Core Measures Meds if any: Prescribed or Continued at Discharge Meds if any: NOT Prescribed or Continued at Discharge Venous thromboembolism Inclusion Criteria VTE Diagnosis No VTE Type NONE VTE Confirmed by (Test) NONE Discharge Core Measures - Per Current guidelines, there needs to be overlap - treatment for the first 5 days of Warfarin therapy. - If discharged on Warfarin prior to 5 days of - overlap therapy, the patient will need to be - assessed for post discharge needs including - *Post discharge parental anticoagulation - *Warfarin and/or parental anticoagulation education - *Follow up date to check INR post discharge At least 5 days overlap therapy as Inpatient No Meds if any: Prescribed or Continued at Discharge Note: Overlap Therapy is Warfarin and Anticoagulant Meds if any: NOT Prescribed or Continued at Discharge
[2018-02-21 07:54] LABS: ABSOLUTE BASOPHIL COUNT 0 /CUMM (0.0-0.2); ABSOLUTE EOSINOPHIL COUNT 0.2 /CUMM (0.0-0.7); ABSOLUTE GRANULOCYTE CT 10.5 /CUMM (1.4-6.5); ABSOLUTE LYMPH COUNT 1.2 /CUMM (1.2-3.4); BASOPHIL % 0.3 % (0.0-2.0); EOSINOPHIL % 1.4 % (0-5); GRANULOCYTE % 81.2 % (42.2-75.2); MEAN CORPUSCULAR HGB 28.3 PG (27.0-31.0); MEAN CORPUSCULAR HGB CONC 33.6 G/DL (33.0-37.0); MEAN CORPUSCULAR VOLUME 84.4 FL (81.0-99.0); MEAN PLATELET VOLUME 6.9 FL (7.4-10.4); PLATELET COUNT 393 /CUMM (130-400); RBC DISTRIBUTION WIDTH 15.7 % (11.5-14.5); RED BLOOD CELL CT 3.44 /CUMM (4.20-5.40); WHITE BLOOD CELL COUNT 12.9 /CUMM (4.8-10.8)
[2018-02-21] MEDS ORDERED: K-TAB ER10 MEQ PO ×2 (08:37→10:19)
--- NOTE | 2018-02-21 11:27 | PN- Infect Dx ---
Subjective Subjective: T-max 100.6. She continues to have watery stools, with 12 reported yesterday and 3 overnight. She also notes mild abdominal cramps but is tolerating a regular diet and drinking liquids. Objective Last 24 Hrs of Vital Signs/I&O Vital Signs Date Time Temp Pulse Resp B/P B/P Pulse O2 O2 Flow FiO2 Mean Ox Delivery Rate 02/21 0630 99.1 102 20 102/70 94 Room Air 02/20 2203 98.3 95 20 120/80 98 Room Air 02/20 1540 99.4 02/20 1442 100.6 02/20 1353 100.6 111 20 146/80 98 Room Air Intake & Output 02/21 1600 02/21 0800 02/21 0000 Intake Total 1160 1160 Output Total Balance 1160 1160 Intake, IV 800 800 Intake, Oral 360 360 Number 3 Bowel Movements Physical Exam Other Physical Findings: She appears comfortable in no acute distress Abdomen is soft, minimally tender to palpation, with no guarding or rebound, positive bowel sounds Extremities no cyanosis, clubbing or edema Results Last 24 Hours of Lab Results: Laboratory Tests 02/21 0655 Chemistry Sodium (137 - 145 mmol/L) 136 L Potassium (3.5 - 5.1 mmol/L) 3.1 L Chloride (98 - 107 mmol/L) 104 Carbon Dioxide (22 - 30 mmol/L) 24 Anion Gap (5 - 16) 8 BUN (7 - 17 mg/dL) 2 L Creatinine (0.5 - 1.0 mg/dL) 0.6 Estimated GFR (>60 ml/min) > 60 BUN/Creatinine Ratio (7 - 25 %) 3.3 L Magnesium (1.6 - 2.3 mg/dL) 1.6 Hematology CBC w Diff NO MAN DIFF REQ WBC (4.8 - 10.8 /CUMM) 12.9 H RBC (4.20 - 5.40 /CUMM) 3.44 L Hgb (12.0 - 16.0 G/DL) 9.7 L Hct (37 - 47 %) 29.0 L MCV (81.0 - 99.0 FL) 84.4 MCH (27.0 - 31.0 PG) 28.3 MCHC (33.0 - 37.0 G/DL) 33.6 RDW (11.5 - 14.5 %) 15.7 H Plt Count (130 - 400 /CUMM) 393 MPV (7.4 - 10.4 FL) 6.9 L Gran % (42.2 - 75.2 %) 81.2 H Lymphocytes % (20.5 - 51.1 %) 9.2 L Monocytes % (1.7 - 9.3 %) 7.9 Eosinophils % (0 - 5 %) 1.4 Basophils % (0.0 - 2.0 %) 0.3 Absolute Granulocytes (1.4 - 6.5 /CUMM) 10.5 H Absolute Lymphocytes (1.2 - 3.4 /CUMM) 1.2 Absolute Monocytes (0.10 - 0.60 /CUMM) 1.0 H Absolute Eosinophils (0.0 - 0.7 /CUMM) 0.2 Absolute Basophils (0.0 - 0.2 /CUMM) 0 Last 24 Hours of Carlos Results: Stool C. difficile February 19 positive Stool O&P February 19 negative Blood cultures 2 February 19 negative Assessment/Plan ID Impression: Overall improved, with white blood cell count continuing to decrease, though she continues to have diarrhea, with hypokalemia again noted this morning, and she had a low-grade fever yesterday. She remains on p.o. Vancomycin, Day 2 of treatment, for C. difficile colitis in the setting of a recent 2 week course of Clindamycin. Suggestion: 1. Continue p.o. Vancomycin to complete a 10 day course
== END 2018-02-21 11:15 | DRG 872 ==
LOC: ERH 11:14 → ERHI 16:05 → 2NA 16:05 → ENRESERV 16:55 → ENTRNSPT 17:49 → EDTRNSPTSTS 17:57 → EDTRNSPT 17:57 → 2NA 18:03 → CMPTRNSPT 18:19 → 2NA 02-21 07:59 → ENPENDDIS 02-21 10:25 → 2NA 02-21 11:15
PROVIDERS: Internal Medicine Interventional Cardiology; Physician Assistant Medical; Preventive Medicine Public Health & General Preventive Medicine
DX: A41.9 Sepsis, unspecified organism (principal); N17.9 Acute kidney failure, unspecified; A04.72 Enterocolitis due to Clostridium difficile, not specified as recurrent; R65.20 Severe sepsis without septic shock; E87.6 Hypokalemia; I10 Essential (primary) hypertension; Z85.42 Personal history of malignant neoplasm of other parts of uterus
CPT/HCPCS: 2NAP; 36592; 74177; 82436; 87015; 87040; 87045; 87328; 87329; 87899; 87899-59; 96374; 96375; J0131; J1644; J2405; J7042